=== PATIENT | female | born 1950 | race Caucasian/White ===

== ENCOUNTER 2019-06-09 20:11 | Inpatient (IN) | payer MEDICARE, MEDICAID ==
[2019-06-09] MEDS ORDERED: Sodium Chloride 0.9% 10 ML Syringe FLUSH PRN (20:43)
[2019-06-09] MEDS ORDERED: Sodium Chloride 0.9% 500 ML IV SCH (20:45)
--- NOTE | 2019-06-09 21:12 | EDM.PDOC ---
ED HPI GENERAL MEDICAL PROBLEM - General Chief Complaint: Cardiovascular Problem Stated Complaint: [facility] Time Seen by Provider: 06/09/19 20:19 Source of Information: Reports: Patient, EMS, Detention Records History Limitations: Reports: No Limitations - History of Present Illness INITIAL COMMENTS - FREE TEXT/NARRATIVE: The patient presents by [facility] for low blood pressure. She is a resident of [facility]. She had some diarrhea today. The nurse was doing rounds and her BP was low in the 60s systolic. When EMS did her BP they got in the 120s systolic. The patient has no symptoms. She has no fever, chills, cough, headache, chest pain, shortness of breath, abdominal pain, nausea or vomiting. She has no dysuria. She is not lightheaded. Her orthostatic vitals looked good. She did not get lightheaded when she was transferring from cot to ER bed. Onset: Sudden Duration: Minutes: Improves with: Reports: None Worsens with: Reports: None Associated Symptoms: Reports: No Other Symptoms - Related Data Allergies Allergy/AdvReac Type Severity Reaction Status Date / Time No Known Allergies Allergy Verified 03/22/19 11:15 Home Meds: Home Meds Ascorbic Acid [Vitamin C] 250 mg PO BID 03/22/19 [History] Bisacodyl [Dulcolax] 5 mg PO DAILY PRN 03/22/19 [History] Carvedilol 3.125 mg PO BID 03/22/19 [History] Citalopram Hydrobromide [Celexa] 20 mg PO DAILY 03/22/19 [History] Ferrous Sulfate 325 mg PO BID 03/22/19 [History] Gabapentin [Neurontin] 100 mg PO TID 03/22/19 [History] Insulin Aspart [NovoLOG] 12 units SQ 1217 03/22/19 [History] Insulin Aspart [NovoLOG] 16 units SQ QAM 03/22/19 [History] Insulin Detemir [Levemir] 16 units SQ QPM 03/22/19 [History] Insulin Detemir [Levemir] 22 units SQ QAM 03/22/19 [History] Lisinopril 2.5 mg PO DAILY 03/22/19 [History] Netarsudil Mesylat/Latanoprost [Rocklatan 0.02%-0.005% Eye Drp] 1 drop EYERT BEDTIME 03/22/19 [History] atorvaSTATin [Lipitor] 40 mg PO DAILY 03/22/19 [History] Acetaminophen [Acetaminophen Extra Strength] 1,000 mg PO TID 06/09/19 [History] Aspirin [Halfprin] 81 mg PO DAILY 06/09/19 [History] Bisacodyl [Dulcolax] 10 mg RC DAILY PRN 06/09/19 [History] Brimonidine Tartrate/Timolol [Combigan Eye Drops] 1 drop EYERT BID 06/09/19 [ History] Clopidogrel [Plavix] 75 mg PO DAILY 06/09/19 [History] Famotidine [Pepcid] 40 mg PO DAILY 06/09/19 [History] Insulin Aspart [NovoLOG] 1 - 10 unit SQ TID 06/09/19 [History] Levothyroxine [Synthroid] 100 mcg PO ACBREAKFAST 06/09/19 [History] Ondansetron [Zofran ODT] 4 mg PO TID PRN 06/09/19 [History] Past Medical History HEENT History: Reports: Glaucoma Cardiovascular History: Reports: CAD, Hypertension, MD Respiratory History: Reports: Other (See Below) Other Respiratory History: pulmonary nodule; cance of right lung Gastrointestinal History: Reports: Chronic Constipation Genitourinary History: Reports: Chronic Renal Insuffiency Neurological History: Reports: CVA Other Neuro History: dysphagia Psychiatric History: Reports: Dementia, Depression, Other (See Below) Other Psychiatric History: alcohol induced dementia Endocrine/Metabolic History: Reports: Diabetes, Type II, Hypothyroidism Social & Family History - Tobacco Use Smoking Status *Q: Former Smoker Used Tobacco, but Quit: Yes Month/Year Tobacco Last Used: 5 yr - Caffeine Use Caffeine Use: Reports: None - Recreational Drug Use Recreational Drug Use: No ED ROS GENERAL - Review of Systems Review Of Systems: See Below Constitutional: Reports: No Symptoms HEENT: Reports: No Symptoms Respiratory: Reports: No Symptoms Cardiovascular: Reports: Blood Pressure Problem. Denies: Chest Pain, Lightheadedness Endocrine: Reports: No Symptoms GI/Abdominal: Reports: Diarrhea. Denies: Abdominal Pain, Nausea, Vomiting : Reports: No Symptoms Musculoskeletal: Reports: No Symptoms Skin: Reports: No Symptoms ED EXAM, GENERAL - Physical Exam Exam: See Below Exam Limited By: No Limitations General Appearance: Alert, No Apparent Distress Ears: Normal External Exam Nose: Normal Inspection Head: Atraumatic, Normocephalic Neck: Normal Inspection, Supple, Non-Tender Respiratory/Chest: No Respiratory Distress, Lungs Clear, Normal Breath Sounds Cardiovascular: Regular Rate, Rhythm, No Edema, No Murmur GI/Abdominal: Soft, Non-Tender, No Organomegaly, No Mass Back Exam: Normal Inspection Extremities: Normal Inspection EKG INTERPRETATION EKG Date: 06/09/19 Time: 21:07 Rhythm: NSR Rate (Beats/Min): 66 [place]: LAD-Left [place] Deviation P-Wave: Present QRS: RBBB ST-T: Normal QT: Normal Course - Vital Signs Last Recorded V/S: Last Vital Signs Temp 96.5 F 06/09/19 20:18 Pulse 59 L 06/09/19 20:32 Resp 20 06/09/19 20:18 BP 90/40 L 06/09/19 20:32 Pulse Ox 97 06/09/19 20:18 Orthostatic Blood Pressure [ 121/102 Standing] Orthostatic Blood Pressure [ 112/54 Sitting] Orthostatic Blood Pressure [ 110/51 Supine] - Orders/Labs/Meds Orders: Active Orders 24 hr Category Date Time Status Cardiac Monitoring [RC] . DIRECTED Care 06/09/19 20:43 Active EKG Documentation Completion [RC] STAT Care 06/09/19 20:44 Active Nj Catheter Insertion [Insert Urinary Catheter] [OM. Care 06/09/19 21:30 Ordered PC] Q24H Peripheral IV Care [RC] . DIRECTED Care 06/09/19 20:44 Active RT Aerosol Therapy [RC] ASDIRECTED Care 06/09/19 21:58 Active Urinary Catheter Assessment [RC] ASDIRECTED Care 06/09/19 21:16 Active CULTURE BLOOD [BC] Stat Lab 06/09/19 22:01 Ordered CULTURE BLOOD [BC] Stat Lab 06/09/19 22:01 Ordered CULTURE URINE [RM] Stat Lab 06/09/19 22:01 Ordered LACTIC ACID [CHEM] Stat Lab 06/09/19 22:01 Ordered Sodium Chloride 0.9% [Normal Saline] 500 ml Med 06/09/19 20:45 Active IV .BOLUS Sodium Chloride 0.9% [Normal Saline] 500 ml Med 06/09/19 22:06 Ordered IV .BOLUS Sodium Chloride 0.9% [Saline Flush] Med 06/09/19 20:43 Active 10 ml FLUSH ASDIRECTED PRN cefTRIAXone [Rocephin] 2 gm Med 06/09/19 22:02 Active Sodium Chloride 0.9% [Normal Saline] 100 ml IV ONETIME Blood Culture x2 Reflex Set [OM.PC] Stat Oth 06/09/19 22:01 Ordered Peripheral IV Insertion Adult [OM.PC] Stat Oth 06/09/19 20:43 Ordered Medication Orders Sodium Chloride (Normal Saline) 500 mls @ 1,000 mls/hr IV .BOLUS HOLGER Last Admin: 06/09/19 21:01 Dose: 1,000 mls/hr Ceftriaxone Sodium 2 gm/ (Sodium Chloride) 100 mls @ 200 mls/hr IV ONETIME ONE Stop: 06/09/19 22:31 Sodium Chloride (Saline Flush) 10 ml FLUSH ASDIRECTED PRN PRN Reason: Keep Vein Open Last Admin: 06/09/19 21:01 Dose: 10 ml Labs: Laboratory Tests 06/09/19 06/09/19 06/09/19 Range/Units 21:00 21:00 21:05 WBC 9.13 (3.98-10.04) K/mm3 RBC 3.14 L (3.98-5.22) M/mm3 Hgb 9.2 L (11.2-15.7) gm/dl Hct 29.9 L (34.1-44.9) % MCV 95.2 H (79.4-94.8) fl MCH 29.3 (25.6-32.2) pg MCHC 30.8 L (32.2-35.5) g/dl RDW Std Deviation 46.5 H (36.4-46.3) fL Plt Count 277 (182-369) K/mm3 MPV 10.3 (9.4-12.3) fl Neut % (Auto) 63.3 (34.0-71.1) % Lymph % (Auto) 20.5 (19.3-51.7) % [place] % (Auto) 8.9 (4.7-12.5) % Eos % (Auto) 6.6 H (0.7-5.8) Baso % (Auto) 0.5 (0.1-1.2) % Neut # (Auto) 5.78 (1.56-6.13) K/mm3 Lymph # (Auto) 1.87 (1.18-3.74) K/mm3 Powell # (Auto) 0.81 H (0.24-0.36) K/mm3 Eos # (Auto) 0.60 H (0.04-0.36) K/mm3 Baso # (Auto) 0.05 (0.01-0.08) K/mm3 Sodium 137 (136-145) mEq/L Potassium 6.2 H* (3.5-5.1) mEq/L Chloride 107 (98-107) mEq/L Carbon Dioxide 21 (21-32) mEq/L Anion Gap 15.2 H (5-15) BUN 59 H (7-18) mg/dL Creatinine 2.2 H (0.55-1.02) mg/dL Est Cr Clr Drug Dosing 18.82 mL/min Estimated GFR (MDRD) 22 (>60) mL/min BUN/Creatinine Ratio 26.8 H (14-18) Glucose 83 (80-115) mg/dL Calcium 9.1 (8.5-10.1) mg/dL Magnesium 2.2 (1.8-2.4) mg/dl Total Bilirubin 0.2 (0.2-1.0) mg/dL AST 14 L (15-37) U/L ALT 22 (14-59) U/L Alkaline Phosphatase 97 (46-116) U/L Troponin I < 0.017 (0.00-0.056) ng/mL Total Protein 6.6 (6.4-8.2) g/dl Albumin 2.9 L (3.4-5.0) g/dl Globulin 3.7 gm/dL Albumin/Globulin Ratio 0.8 L (1-2) Urine Color Yellow (Yellow) Urine Appearance Slt cloudy H (Clear) Urine pH 6.0 (5.0-8.0) Ur Specific [place] 1.025 (1.005-1.030) Urine Protein 2+ H (Negative) Urine Glucose (UA) Negative (Negative) Urine Ketones Negative (Negative) Urine Occult Blood Trace-intact H (Negative) Urine Nitrite Negative (Negative) Urine Bilirubin Negative (Negative) Urine Urobilinogen 0.2 (0.2-1.0) Ur Leukocyte Esterase 2+ H (Negative) Urine RBC 0-5 (0-5) /hpf Urine WBC >100 H (0-5) /hpf Urine WBC Clumps Moderate (NOT SEEN) /hpf Ur Epithelial Cells 0-5 (0-5) /hpf Urine Bacteria Many H (FEW) /hpf Urine Mucus Moderate H (FEW) /hpf Meds: Medications Generic Name Dose Route Start Last Admin Trade Name Freq PRN Reason Stop Dose Admin Sodium Chloride 500 mls @ 1,000 mls/hr 06/09/19 20:45 06/09/19 21:01 Normal Saline IV 1,000 mls/hr .BOLUS HOLGER Administration Ceftriaxone Sodium 2 gm/ 100 mls @ 200 mls/hr 06/09/19 22:02 Sodium Chloride IV 06/09/19 22:31 ONETIME ONE Sodium Chloride 10 ml 06/09/19 20:43 06/09/19 21:01 Saline Flush FLUSH 10 ml ASDIRECTED PRN Administration Keep Vein Open Discontinued Medications Generic Name Dose Route Start Last Admin Trade Name Dineshq PRN Reason Stop Dose Admin Albuterol 2.5 mg 06/09/19 21:58 Proventil Neb Soln NEB 06/09/19 21:59 ONETIME ONE Calcium Gluconate 1 gm 06/09/19 21:58 Calcium Gluconate IVPUSH 06/09/19 21:59 ONETIME ONE Dextrose/Water 50 ml 06/09/19 21:59 Dextrose 50% In Water IVPUSH 06/09/19 22:00 ONETIME ONE Insulin Human Regular 10 unit 06/09/19 21:59 Humulin R SUBCUT 06/09/19 22:00 ONETIME ONE Sodium Polystyrene Sulfonate 45 gm 06/09/19 22:00 Kayexalate PO 06/09/19 22:01 NOW ONE - Re-Assessments/Exams Free Text/Narrative Re-Assessment/Exam: 06/09/19 21:18 I ordered an IV NS 500ml bolus, EKG, labs and UA. My nurse noticed some dark stools. I did a rectal exam and she had dark stools but she as guiac negative. I am not sure if she got pepto bismal. 06/09/19 21:50 She is in iron. That can explain the dark stools that are guiac positive. 06/09/19 21:53 Her WBC and platelets look good. Her Hgb is low at 9.2 with lower indices. That must be why she is on the iron. Her K is elevated at 6.2. Her creatinine is elevated at 2.2. Her GFR is 22. 06/09/19 21:54 Her UA shows a UTI. I will do a urine culture and start her on some rocephin. It appears she was just on an antibiotic for a UTI mid May. I will give her some calcium gluconate, insulin and sugar, albuterol, hydration and kaexylate to help bring her potassium down. I feel she needs to be admitted. I called Dr Phan and he agreed to the admission. 06/09/19 21:57 There is no changes on her EKG. Departure - Departure Time of Disposition: 22:10 Disposition: Admitted As Inpatient 65 Condition: Poor Clinical Impression: Hyperkalemia, Renal insufficiency UTI (urinary tract infection) Qualifiers: Urinary tract infection type: site unspecified Hematuria presence: without hematuria Qualified Code(s): N39.0 - Urinary tract infection, site not specified Anemia Qualifiers: Anemia type: unspecified type Qualified Code(s): D64.9 - Anemia, unspecified Referrals: Joel Lieberman MD [Primary Care Provider] - Forms: ED Department Discharge - My Orders Last 24 Hours: My Active Orders 06/09/19 20:43 Cardiac Monitoring [RC] . DIRECTED Sodium Chloride 0.9% [Saline Flush] 10 ml FLUSH ASDIRECTED PRN Peripheral IV Insertion Adult [OM.PC] Stat 06/09/19 20:44 EKG Documentation Completion [RC] STAT Peripheral IV Care [RC] . DIRECTED 06/09/19 20:45 Sodium Chloride 0.9% [Normal Saline] 500 ml IV .BOLUS 06/09/19 21:16 Urinary Catheter Assessment [RC] ASDIRECTED 06/09/19 21:30 Nj Catheter Insertion [Insert Urinary Catheter] [OM.PC] Q24H 06/09/19 21:58 RT Aerosol Therapy [RC] ASDIRECTED 06/09/19 22:01 CULTURE BLOOD [BC] Stat CULTURE BLOOD [BC] Stat CULTURE URINE [RM] Stat LACTIC ACID [CHEM] Stat Blood Culture x2 Reflex Set [OM.PC] Stat 06/09/19 22:02 cefTRIAXone [Rocephin] 2 gm Sodium Chloride 0.9% [Normal Saline] 100 ml IV ONETIME 06/09/19 22:06 Sodium Chloride 0.9% [Normal Saline] 500 ml IV .BOLUS - Assessment/Plan Last 24 Hours: My Active Orders 06/09/19 20:43 Cardiac Monitoring [RC] . DIRECTED Sodium Chloride 0.9% [Saline Flush] 10 ml FLUSH ASDIRECTED PRN Peripheral IV Insertion Adult [OM.PC] Stat 06/09/19 20:44 EKG Documentation Completion [RC] STAT Peripheral IV Care [RC] . DIRECTED 06/09/19 20:45 Sodium Chloride 0.9% [Normal Saline] 500 ml IV .BOLUS 06/09/19 21:16 Urinary Catheter Assessment [RC] ASDIRECTED 06/09/19 21:30 Nj Catheter Insertion [Insert Urinary Catheter] [OM.PC] Q24H 06/09/19 21:58 RT Aerosol Therapy [RC] ASDIRECTED 06/09/19 22:01 CULTURE BLOOD [BC] Stat CULTURE BLOOD [BC] Stat CULTURE URINE [RM] Stat LACTIC ACID [CHEM] Stat Blood Culture x2 Reflex Set [OM.PC] Stat 06/09/19 22:02 cefTRIAXone [Rocephin] 2 gm Sodium Chloride 0.9% [Normal Saline] 100 ml IV ONETIME 06/09/19 22:06 Sodium Chloride 0.9% [Normal Saline] 500 ml IV .BOLUS
[2019-06-09] MEDS ORDERED: Calcium Gluconate 10% 1 GM/10 ML SDV IVPUSH ONE (21:58)
[2019-06-09] MEDS ORDERED: Albuterol 0.083% 2.5 MG/3 ML Neb Soln NEB ONE (21:58)
[2019-06-09] MEDS ORDERED: 50% Dextrose in Water 50 ML Syringe IVPUSH ONE (21:59)
[2019-06-09] MEDS ORDERED: Insulin Regular, Human 100 Units/ML 3 ML Vial SUBCUT ONE (21:59)
[2019-06-09] MEDS ORDERED: Sodium Polystyrene Sulfonate 15 GM/60 ML Susp 60 ML Bot PO ONE (22:00)
[2019-06-09] MEDS ORDERED: cefTRIAXone 2 GM in Sodium Chloride 0.9% 100 ML IV ONE (22:02)
[2019-06-09] MEDS ORDERED: Sodium Chloride 0.9% 500 ML IV ONE (22:06)
[2019-06-10] MEDS ORDERED: Sodium Chloride 0.9% 1,000 ML IV SCH ×2 (00:15→08:15)
--- NOTE | 2019-06-10 07:07 | PCM.HP.2 ---
H&P History of Present Illness - General Date of Service: 06/10/19 Admit Problem/Dx: Admission Diagnosis/Problem Admission Diagnosis/Problem Hypokalemia Source of Information: Patient, Provider, RN, RN Notes Reviewed History Limitations: Reports: No Limitations - History of Present Illness Initial Comments - Free Text/Narative: Miracle Burgess is a 69 yo female who presented to our ED on 06/09/19 via [facility] with hypotension. Nursing reported her blood pressure at [facility] was in the 60s systolic. EMS was summoned and on their arrival blood pressure was noted to be in the 120 systolic. In the ED patient has no symptoms. She denies fever, chills, cough, headache, chest pain, short of breath, abdominal pain, nausea, vomiting. She denies dysuria or light headedness. Orthostatic vital signs were obtained and looked good. long-term staff reports patient did have some diarrhea earlier in the day but it had apparently resolved prior to arrival in the ED. In the ED twelve-lead EKG is obtained showing sinus rhythm at 66 bpm with left axis deviation. There is also right bundle branch block noted. It was 96.5 Fahrenheit. Pulse 59. Respirations 20. Blood pressure 90/40. Pulse ox 97%. Labs are obtained: WBC is 9.13. Hemoglobin 9.2. Hematocrit 29.9. She is macrocytic. Pulse are 277,000. Neutrophils are normal at 63.3%. Sodium is 137. Potassium is high at 6.2. Chloride is 107. Carbon dioxide 21. Anion gap is slightly high at 15.2. BUN is high at 59. Creatinine is 2.2. EGFR is 22. Glucose is 83. Calcium 9.1. Magnesium 2.2. Bilirubin 0.2. AST is 14, ALT 22, alkaline phosphatase 97. Troponin is negative at less than 0.017. Protein is 6.6. Albumin is quite low at 2.9. UA is obtained and is noted to be slightly cloudy with 2+ protein, trace occult blood, 2+ leukocyte esterase, greater than 100 WBCs. Moderate WBC clumps, many bacteria, and moderate uterus. She is given normal saline and started on Rocephin antibiotic. She is also given Kayexalate and 10 units of insulin. 500 mL saline bolus is administered. Guaiac is obtained and is positive however it is noted that the patient is on iron supplement. She is reportedly recently treated for UTI this past May. She carries a history of glaucoma, CAD, hypertension, [place], pulmonary nodule and cancer of the right lung, chronic constipation, chronic renal insufficiency, CVA , dementia, depression, type 2 diabetes, hypothyroidism. She is a former smoker. She says really admitted to the medical floor with telemetry. She is a DNR/ DNI. PCP is Dr. Lieberman - Related Data Allergies/Adverse Reactions: Allergies Allergy/AdvReac Type Severity Reaction Status Date / Time No Known Allergies Allergy Verified 03/22/19 11:15 Home Medications: Home Meds Ascorbic Acid [Vitamin C] 250 mg PO BID 03/22/19 [History] Bisacodyl [Dulcolax] 5 mg PO DAILY PRN 03/22/19 [History] Carvedilol 3.125 mg PO BID 03/22/19 [History] Citalopram Hydrobromide [Celexa] 20 mg PO DAILY 03/22/19 [History] Ferrous Sulfate 325 mg PO BID 03/22/19 [History] Gabapentin [Neurontin] 100 mg PO TID 03/22/19 [History] Insulin Aspart [NovoLOG] 12 units SQ 03/22/19 [History] Insulin Aspart [NovoLOG] 16 units SQ QAM 03/22/19 [History] Insulin Detemir [Levemir] 16 units SQ QPM 03/22/19 [History] Insulin Detemir [Levemir] 22 units SQ QAM 03/22/19 [History] Lisinopril 2.5 mg PO DAILY 03/22/19 [History] Netarsudil Mesylat/Latanoprost [Rocklatan 0.02%-0.005% Eye Drp] 1 drop EYERT BEDTIME 03/22/19 [History] atorvaSTATin [Lipitor] 40 mg PO BEDTIME 03/22/19 [History] Acetaminophen [Acetaminophen Extra Strength] 1,000 mg PO TID 06/09/19 [History] Aspirin [Halfprin] 81 mg PO DAILY 06/09/19 [History] Bisacodyl [Dulcolax] 10 mg RC DAILY PRN 06/09/19 [History] Brimonidine Tartrate/Timolol [Combigan Eye Drops] 1 drop EYERT BID 06/09/19 [ History] Clopidogrel [Plavix] 75 mg PO DAILY 06/09/19 [History] Famotidine [Pepcid] 40 mg PO ACBREAKFAST 06/09/19 [History] Insulin Aspart [NovoLOG] 1 - 10 unit SQ TID 06/09/19 [History] Levothyroxine [Synthroid] 100 mcg PO ACBREAKFAST 06/09/19 [History] Ondansetron [Zofran ODT] 4 mg PO TID PRN 06/09/19 [History] Past Medical History HEENT History: Reports: Glaucoma Cardiovascular History: Reports: CAD, Hypertension, [place] Respiratory History: Reports: Other (See Below) Other Respiratory History: pulmonary nodule; cancer of right lung Gastrointestinal History: Reports: Chronic Constipation Genitourinary History: Reports: Chronic Renal Insuffiency Neurological History: Reports: CVA Other Neuro History: dysphagia oropharyngeal phase Psychiatric History: Reports: Dementia, Depression, Other (See Below) Other Psychiatric History: alcohol induced dementia Endocrine/Metabolic History: Reports: Diabetes, Type II, Hypothyroidism Social & Family History - Family History Family Medical History: Noncontributory - Tobacco Use Smoking Status *Q: Unknown Ever Smoked Used Tobacco, but Quit: Yes Month/Year Tobacco Last Used: 5 yr Second Hand Smoke Exposure: No - Caffeine Use Caffeine Use: Reports: None - Recreational Drug Use Recreational Drug Use: No H&P Review of Systems - Review of Systems: Review Of Systems: See Below General: Reports: No Symptoms. Denies: Fever, Chills, Malaise, Weakness, Fatigue HEENT: Reports: No Symptoms Pulmonary: Reports: No Symptoms. Denies: Shortness of Breath, Wheezing, Cough, Sputum Cardiovascular: Reports: No Symptoms. Denies: Chest Pain, Palpitations, Edema Gastrointestinal: Reports: No Symptoms. Denies: Abdominal Pain, Constipation, Diarrhea (resolved), Nausea, Vomiting Genitourinary: Reports: No Symptoms. Denies: Pain Musculoskeletal: Reports: No Symptoms Skin: Reports: No Symptoms Psychiatric: Reports: No Symptoms. Denies: Confusion Neurological: Reports: No Symptoms. Denies: Confusion Hematologic/Lymphatic: Reports: No Symptoms Immunologic: Reports: No Symptoms Exam - Exam Exam: See Below - Vital Signs Vital Signs: Last Vital Signs Temp 98.2 F 06/10/19 03:53 Pulse 64 06/10/19 03:53 Resp 18 06/10/19 03:53 BP 110/60 06/10/19 03:53 Pulse Ox 97 06/10/19 03:53 Orthostatic Blood Pressure [ 121/102 Standing] Orthostatic Blood Pressure [ 112/54 Sitting] Orthostatic Blood Pressure [ 110/51 Supine] Weight: 169 lb 1.6 oz - Exam Quality Assessment: DVT Prophylaxis General: Alert, Oriented, Cooperative. No: Mild Distress HEENT: Conjunctiva Clear, EACs Clear, Hearing Intact, Mucosa Moist & Cricket, Nares Patent, Posterior Pharynx Clear, TMs Clear, PERRLA Neck: Supple, Trachea Midline Lungs: Clear to Auscultation, Normal Respiratory Effort Cardiovascular: Regular Rate, Regular Rhythm GI/Abdominal Exam: Normal Bowel Sounds, Soft, Non-Tender, No Distention, No Abnormal Bruit (Female) Exam: Deferred Rectal (Female) Exam: Deferred Back Exam: Normal Inspection, Full Range of Motion Extremities: Normal Inspection, Normal Range of Motion, Non-Tender, No Pedal Edema, Normal Capillary Refill Peripheral Pulses: 1+: Dorsalis Pedis (L), Dorsalis Pedis (R), 2+: Radial (L), Radial (R) Skin: Warm, Dry, Intact - Patient Data Lab Results Last 24 hrs: Laboratory Results - last 24 hr 06/09/19 06/09/19 06/09/19 Range/Units 21:00 21:00 21:05 WBC 9.13 (3.98-10.04) K/mm3 RBC 3.14 L (3.98-5.22) M/mm3 Hgb 9.2 L (11.2-15.7) gm/dl Hct 29.9 L (34.1-44.9) % MCV 95.2 H (79.4-94.8) fl MCH 29.3 (25.6-32.2) pg MCHC 30.8 L (32.2-35.5) g/dl RDW Std Deviation 46.5 H (36.4-46.3) fL Plt Count 277 (182-369) K/mm3 MPV 10.3 (9.4-12.3) fl Neut % (Auto) 63.3 (34.0-71.1) % Lymph % (Auto) 20.5 (19.3-51.7) % [place] % (Auto) 8.9 (4.7-12.5) % Eos % (Auto) 6.6 H (0.7-5.8) Baso % (Auto) 0.5 (0.1-1.2) % Neut # (Auto) 5.78 (1.56-6.13) K/mm3 Lymph # (Auto) 1.87 (1.18-3.74) K/mm3 [place] # (Auto) 0.81 H (0.24-0.36) K/mm3 Eos # (Auto) 0.60 H (0.04-0.36) K/mm3 Baso # (Auto) 0.05 (0.01-0.08) K/mm3 Sodium 137 (136-145) mEq/L Potassium 6.2 H* (3.5-5.1) mEq/L Chloride 107 (98-107) mEq/L Carbon Dioxide 21 (21-32) mEq/L Anion Gap 15.2 H (5-15) BUN 59 H (7-18) mg/dL Creatinine 2.2 H (0.55-1.02) mg/dL Est Cr Clr Drug Dosing 18.82 mL/min Estimated GFR (MDRD) 22 (>60) mL/min BUN/Creatinine Ratio 26.8 H (14-18) Glucose 83 (80-115) mg/dL POC Glucose (80-115) mg/dL Lactic Acid (0.4-2.0) mmol/L Calcium 9.1 (8.5-10.1) mg/dL Magnesium 2.2 (1.8-2.4) mg/dl Total Bilirubin 0.2 (0.2-1.0) mg/dL AST 14 L (15-37) U/L ALT 22 (14-59) U/L Alkaline Phosphatase 97 (46-116) U/L Troponin I < 0.017 (0.00-0.056) ng/mL Total Protein 6.6 (6.4-8.2) g/dl Albumin 2.9 L (3.4-5.0) g/dl Globulin 3.7 gm/dL Albumin/Globulin Ratio 0.8 L (1-2) Urine Color Yellow (Yellow) Urine Appearance Slt cloudy H (Clear) Urine pH 6.0 (5.0-8.0) Ur Specific [place] 1.025 (1.005-1.030) Urine Protein 2+ H (Negative) Urine Glucose (UA) Negative (Negative) Urine Ketones Negative (Negative) Urine Occult Blood Trace-intact H (Negative) Urine Nitrite Negative (Negative) Urine Bilirubin Negative (Negative) Urine Urobilinogen 0.2 (0.2-1.0) Ur Leukocyte Esterase 2+ H (Negative) Urine RBC 0-5 (0-5) /hpf Urine WBC >100 H (0-5) /hpf Urine WBC Clumps Moderate (NOT SEEN) /hpf Ur Epithelial Cells 0-5 (0-5) /hpf Urine Bacteria Many H (FEW) /hpf Urine Mucus Moderate H (FEW) /hpf MRSA (PCR) 06/09/19 06/09/19 06/10/19 Range/Units 22:15 23:51 00:39 WBC (3.98-10.04) K/mm3 RBC (3.98-5.22) M/mm3 Hgb (11.2-15.7) gm/dl Hct (34.1-44.9) % MCV (79.4-94.8) fl MCH (25.6-32.2) pg MCHC (32.2-35.5) g/dl RDW Std Deviation (36.4-46.3) fL Plt Count (182-369) K/mm3 MPV (9.4-12.3) fl Neut % (Auto) (34.0-71.1) % Lymph % (Auto) (19.3-51.7) % [place] % (Auto) (4.7-12.5) % Eos % (Auto) (0.7-5.8) Baso % (Auto) (0.1-1.2) % Neut # (Auto) (1.56-6.13) K/mm3 Lymph # (Auto) (1.18-3.74) K/mm3 [place] # (Auto) (0.24-0.36) K/mm3 Eos # (Auto) (0.04-0.36) K/mm3 Baso # (Auto) (0.01-0.08) K/mm3 Sodium 139 (136-145) mEq/L Potassium 5.6 H (3.5-5.1) mEq/L Chloride 109 H (98-107) mEq/L Carbon Dioxide 20 L (21-32) mEq/L Anion Gap 15.6 H (5-15) BUN 56 H (7-18) mg/dL Creatinine 2.0 H (0.55-1.02) mg/dL Est Cr Clr Drug Dosing 20.70 mL/min Estimated GFR (MDRD) 25 (>60) mL/min BUN/Creatinine Ratio 28.0 H (14-18) Glucose 107 (80-115) mg/dL POC Glucose (80-115) mg/dL Lactic Acid 1.1 (0.4-2.0) mmol/L Calcium 9.6 (8.5-10.1) mg/dL Magnesium (1.8-2.4) mg/dl Total Bilirubin (0.2-1.0) mg/dL AST (15-37) U/L ALT (14-59) U/L Alkaline Phosphatase (46-116) U/L Troponin I (0.00-0.056) ng/mL Total Protein (6.4-8.2) g/dl Albumin (3.4-5.0) g/dl Globulin gm/dL Albumin/Globulin Ratio (1-2) Urine Color (Yellow) Urine Appearance (Clear) Urine pH (5.0-8.0) Ur Specific [place] (1.005-1.030) Urine Protein (Negative) Urine Glucose (UA) (Negative) Urine Ketones (Negative) Urine Occult Blood (Negative) Urine Nitrite (Negative) Urine Bilirubin (Negative) Urine Urobilinogen (0.2-1.0) Ur Leukocyte Esterase (Negative) Urine RBC (0-5) /hpf Urine WBC (0-5) /hpf Urine WBC Clumps (NOT SEEN) /hpf Ur Epithelial Cells (0-5) /hpf Urine Bacteria (FEW) /hpf Urine Mucus (FEW) /hpf MRSA (PCR) Negative 06/10/19 06/10/19 Range/Units 05:05 06:46 WBC (3.98-10.04) K/mm3 RBC (3.98-5.22) M/mm3 Hgb (11.2-15.7) gm/dl Hct (34.1-44.9) % MCV (79.4-94.8) fl MCH (25.6-32.2) pg MCHC (32.2-35.5) g/dl RDW Std Deviation (36.4-46.3) fL Plt Count (182-369) K/mm3 MPV (9.4-12.3) fl Neut % (Auto) (34.0-71.1) % Lymph % (Auto) (19.3-51.7) % [place] % (Auto) (4.7-12.5) % Eos % (Auto) (0.7-5.8) Baso % (Auto) (0.1-1.2) % Neut # (Auto) (1.56-6.13) K/mm3 Lymph # (Auto) (1.18-3.74) K/mm3 [place] # (Auto) (0.24-0.36) K/mm3 Eos # (Auto) (0.04-0.36) K/mm3 Baso # (Auto) (0.01-0.08) K/mm3 Sodium 142 (136-145) mEq/L Potassium 5.0 (3.5-5.1) mEq/L Chloride 111 H (98-107) mEq/L Carbon Dioxide 21 (21-32) mEq/L Anion Gap 15.0 (5-15) BUN 50 H (7-18) mg/dL Creatinine 1.9 H (0.55-1.02) mg/dL Est Cr Clr Drug Dosing 19.79 mL/min Estimated GFR (MDRD) 26 (>60) mL/min BUN/Creatinine Ratio 26.3 H (14-18) Glucose 47 L (80-115) mg/dL POC Glucose 109 (80-115) mg/dL Lactic Acid (0.4-2.0) mmol/L Calcium 9.2 (8.5-10.1) mg/dL Magnesium (1.8-2.4) mg/dl Total Bilirubin (0.2-1.0) mg/dL AST (15-37) U/L ALT (14-59) U/L Alkaline Phosphatase (46-116) U/L Troponin I (0.00-0.056) ng/mL Total Protein (6.4-8.2) g/dl Albumin (3.4-5.0) g/dl Globulin gm/dL Albumin/Globulin Ratio (1-2) Urine Color (Yellow) Urine Appearance (Clear) Urine pH (5.0-8.0) Ur Specific [place] (1.005-1.030) Urine Protein (Negative) Urine Glucose (UA) (Negative) Urine Ketones (Negative) Urine Occult Blood (Negative) Urine Nitrite (Negative) Urine Bilirubin (Negative) Urine Urobilinogen (0.2-1.0) Ur Leukocyte Esterase (Negative) Urine RBC (0-5) /hpf Urine WBC (0-5) /hpf Urine WBC Clumps (NOT SEEN) /hpf Ur Epithelial Cells (0-5) /hpf Urine Bacteria (FEW) /hpf Urine Mucus (FEW) /hpf MRSA (PCR) Result Diagrams: 06/09/19 21:00 06/10/19 05:05 - Problem List (1) Anemia SNOMED Code(s): 587721762 ICD Code: D64.9 - ANEMIA, UNSPECIFIED Status: Chronic Priority: Medium Current Visit: No Qualifiers: Anemia type: unspecified type Qualified Code(s): D64.9 - Anemia, unspecified (2) Hyperkalemia SNOMED Code(s): 35870592 ICD Code: E87.5 - HYPERKALEMIA Status: Acute Priority: High Current Visit: Yes (3) Renal insufficiency SNOMED Code(s): 655295491, 553289486 ICD Code: N28.9 - DISORDER OF KIDNEY AND URETER, UNSPECIFIED Status: Acute Priority: High Current Visit: Yes (4) UTI (urinary tract infection) SNOMED Code(s): 67418401 ICD Code: N39.0 - URINARY TRACT INFECTION, SITE NOT SPECIFIED Status: Acute Priority: High Current Visit: Yes Qualifiers: Urinary tract infection type: site unspecified Hematuria presence: without hematuria Qualified Code(s): N39.0 - Urinary tract infection, site not specified (5) Type II diabetes mellitus SNOMED Code(s): 94968829 ICD Code: E11.9 - TYPE 2 DIABETES MELLITUS WITHOUT COMPLICATIONS Status: Chronic Priority: Medium Current Visit: Yes Qualifiers: Diabetes mellitus buttermaker helper insulin use: with buttermaker helper use Diabetes mellitus complication status: with other specified complication Qualified Code (s): E11.69 - Type 2 diabetes mellitus with other specified complication; Z79.4 - MCC (current) use of insulin (6) Dementia SNOMED Code(s): 79500874 ICD Code: F03.90 - UNSPECIFIED DEMENTIA WITHOUT BEHAVIORAL DISTURBANCE Status: Chronic Priority: Medium Current Visit: No Qualifiers: Dementia type: associated with alcoholism Dementia behavioral disturbance: without behavioral disturbance Qualified Code(s): F10.27 - Alcohol dependence with alcohol-induced persisting dementia (7) Hypothyroidism SNOMED Code(s): 08081234 ICD Code: E03.9 - HYPOTHYROIDISM, UNSPECIFIED Status: Chronic Priority: Low Current Visit: No Qualifiers: Hypothyroidism type: unspecified Qualified Code(s): E03.9 - Hypothyroidism , unspecified Problem List Initiated/Reviewed/Updated: Yes Orders Last 24hrs: Active Orders 24 hr Category Date Time Status Patient Status [ADT] Routine ADT 06/09/19 22:46 Active Accu Check [Blood Glucose Check, Bedside] [RC] Care 06/10/19 07:02 Active QIDACANDBED Bedrest Bathroom Privileges [RC] BID Care 06/10/19 00:04 Active Cardiac Monitoring [RC] . DIRECTED Care 06/09/19 20:43 Active [place] Catheter Insertion [Insert Urinary Catheter] [OM. Care 06/09/19 21:30 Ordered PC] Q24H RT Aerosol Therapy [RC] ASDIRECTED Care 06/09/19 21:58 Active Thickened Liquids [DIET] Diet 06/10/19 Breakfast Active CULTURE BLOOD [BC] Stat Lab 06/09/19 22:01 Ordered CULTURE BLOOD [BC] Stat Lab 06/09/19 22:30 Received CULTURE URINE [RM] Stat Lab 06/09/19 21:05 Received Sodium Chloride 0.9% [Normal Saline] 1,000 ml Med 06/10/19 00:15 Active IV ASDIRECTED Sodium Chloride 0.9% [Saline Flush] Med 06/09/19 20:43 Active 10 ml FLUSH ASDIRECTED PRN cefTRIAXone [Rocephin] 1 gm Med 06/10/19 22:00 Active Sodium Chloride 0.9% [Normal Saline] 100 ml IV Q24H Blood Culture x2 Reflex Set [OM.PC] Stat Oth 06/09/19 22:01 Ordered Peripheral IV Insertion Adult [OM.PC] Stat Oth 06/09/19 20:43 Ordered Code Status [Resuscitation Status] Routine Resus Stat 06/10/19 00:04 Ordered Medication Orders Ceftriaxone Sodium 1 gm/ (Sodium Chloride) 100 mls @ 200 mls/hr IV Q24H HOLGER Sodium Chloride (Normal Saline) 1,000 mls @ 150 mls/hr IV ASDIRECTED HOLGER Last Admin: 06/10/19 01:07 Dose: 150 mls/hr Sodium Chloride (Saline Flush) 10 ml FLUSH ASDIRECTED PRN PRN Reason: Keep Vein Open Last Admin: 06/09/19 21:01 Dose: 10 ml Assessment/Plan Comment:: I/P: UTI -Reportedly hypotensive at SNF, denies urinary symptoms -UA in ED positive -Rocephin 2gm started in ED - Continue at 1gm -Reportedly treated for UTI in May per ED note - no history here; obtain old records -IV fluids as ordered -Urine culture pending -Blood cultures pending Hyperkalemia, resolved -Potassium 6.2 in ED -->5.6-->5.0 -Given Kayexalate in ED Renal injury, improving -Acute on chronic -Unsure of baseline but per SNF notes patient has history of CKD -BUN 59-->56-->50 -Creatinine 2.2-->2.0-->1.9 -GFR 22-->25-->26 -IV fluids as ordered -Obtain old records to determine baseline Anemia -Hgb 9.2 -Positive occult stool but on home iron supplementation -Iron panel pending -B 12 pending -Folate pending -Continue home iron supplementation Chronic: glaucoma CAD hypertension Hx/o [place] pulmonary nodule and cancer of the right lung chronic constipation chronic renal insufficiency CVA dementia depression type 2 diabetes hypothyroidism Plan: Baseline NDD2 diet with nectar thick liquids Admit to medical floor Routine AM labs Other orders as indicated above PT/OT Spiritual care consult DVT prophylaxis: Code status: DNR/DNI; PCP: Dr. Lieberman - Mortality Measure Prognosis:: Good
[2019-06-10] MEDS ORDERED: Bisacodyl 5 MG Tab PO PRN (08:02)
[2019-06-10] MEDS ORDERED: Bisacodyl 10 MG Supp RECTAL PRN (08:02)
[2019-06-10] MEDS ORDERED: Ondansetron 4 MG Tab.DIS PO PRN (08:02)
[2019-06-10] MEDS: Ferrous Sulfate 324 MG Tab.EC PO SCH ×2 (09:09→20:46)
[2019-06-10] MEDS: Carvedilol 3.125 MG Tab PO SCH ×2 (09:09→20:44)
[2019-06-10] MEDS: Aspirin 81 MG Tab.EC PO SCH (09:09)
[2019-06-10] MEDS: Ascorbic Acid 500 MG Tab PO SCH ×2 (09:10→20:47)
[2019-06-10] MEDS: Clopidogrel 75 MG Tab PO SCH (09:10)
[2019-06-10] MEDS: Gabapentin 100 MG Cap PO SCH ×3 (09:10→20:46)
[2019-06-10] MEDS: Citalopram 20 MG Tab PO SCH (09:10)
[2019-06-10] MEDS: Timolol Maleate 0.5% Ophth Soln 5 ML Bottle EYEBOTH SCH ×2 (09:13→20:49)
[2019-06-10] MEDS: Brimonidine 0.2% Ophth Soln 15 ML Bottle EYERT SCH ×2 (09:15→20:48)
[2019-06-10 09:16] LABS: HEMOGLOBIN A1C 6.3 % (4.50-6.20)
[2019-06-10] MEDS: Insulin Lispro 100 Units/ML 3 ML Vial SUBCUT SCH ×3 (12:31→21:41)
[2019-06-10] MEDS ORDERED: Insulin Glarg,Human.Rec.Analog 100 UNIT/ML ML SUBCUT SCH (18:00)
[2019-06-10] MEDS ORDERED: Rosuvastatin 10 MG Tab PO SCH (21:00)
[2019-06-10] MEDS ORDERED: NETARSUDIL MESYLAT EYERT SCH (21:00)
[2019-06-10] MEDS ORDERED: LATANOPROST EYERT SCH (21:00)
[2019-06-10] MEDS ORDERED: cefTRIAXone 1 GM in Sodium Chloride 0.9% 100 ML IV SCH (22:00)
[2019-06-11] MEDS ORDERED: Levothyroxine 100 MCG Tab PO SCH (06:00)
[2019-06-11] MEDS ORDERED: Famotidine 20 MG Tab PO SCH (06:00)
[2019-06-11] MEDS: Insulin Lispro 100 Units/ML 3 ML Vial SUBCUT SCH ×2 (06:35→11:40)
[2019-06-11] MEDS ORDERED: Magnesium Sulfate/Water 2 GM in Premix Bag 1 BAG IV ONE (07:13)
[2019-06-11] MEDS ORDERED: Sodium Polystyrene Sulfonate 15 GM/60 ML Susp 60 ML Bot PO ONE (08:00)
[2019-06-11] MEDS ORDERED: Insulin Glarg,Human.Rec.Analog 100 UNIT/ML ML SUBCUT SCH (08:00)
[2019-06-11] MEDS: Ferrous Sulfate 324 MG Tab.EC PO SCH (08:47)
[2019-06-11] MEDS: Aspirin 81 MG Tab.EC PO SCH (08:47)
[2019-06-11] MEDS: Clopidogrel 75 MG Tab PO SCH (08:47)
[2019-06-11] MEDS: Carvedilol 3.125 MG Tab PO SCH (08:47)
[2019-06-11] MEDS: Gabapentin 100 MG Cap PO SCH (08:47)
[2019-06-11] MEDS: Citalopram 20 MG Tab PO SCH (08:48)
[2019-06-11] MEDS: Ascorbic Acid 500 MG Tab PO SCH (08:48)
[2019-06-11] MEDS ORDERED: Magnesium Oxide 400 MG Tab PO ONE (09:00)
[2019-06-11] MEDS: Brimonidine 0.2% Ophth Soln 15 ML Bottle EYERT SCH (09:02)
[2019-06-11] MEDS: Timolol Maleate 0.5% Ophth Soln 5 ML Bottle EYEBOTH SCH (09:04)
--- NOTE | 2019-06-11 11:24 | PCM.DCSUM1 ---
Discharge Summary - Hospital Course HPI Initial Comments: Miracle Burgess is a 69 yo female who presented to our ED on 06/09/19 via [facility] with hypotension. Nursing reported her blood pressure at [facility] was in the 60s systolic. EMS was summoned and on their arrival blood pressure was noted to be in the 120 systolic. In the ED patient has no symptoms. She denies fever, chills, cough, headache, chest pain, short of breath, abdominal pain, nausea, vomiting. She denies dysuria or light headedness. Orthostatic vital signs were obtained and looked good. senior care staff reports patient did have some diarrhea earlier in the day but it had apparently resolved prior to arrival in the ED. In the ED twelve-lead EKG is obtained showing sinus rhythm at 66 bpm with left axis deviation. There is also right bundle branch block noted. It was 96.5 Fahrenheit. Pulse 59. Respirations 20. Blood pressure 90/40. Pulse ox 97%. Labs are obtained: WBC is 9.13. Hemoglobin 9.2. Hematocrit 29.9. She is macrocytic. Pulse are 277,000. Neutrophils are normal at 63.3%. Sodium is 137. Potassium is high at 6.2. Chloride is 107. Carbon dioxide 21. Anion gap is slightly high at 15.2. BUN is high at 59. Creatinine is 2.2. EGFR is 22. Glucose is 83. Calcium 9.1. Magnesium 2.2. Bilirubin 0.2. AST is 14, ALT 22, alkaline phosphatase 97. Troponin is negative at less than 0.017. Protein is 6.6. Albumin is quite low at 2.9. UA is obtained and is noted to be slightly cloudy with 2+ protein, trace occult blood, 2+ leukocyte esterase, greater than 100 WBCs. Moderate WBC clumps, many bacteria, and moderate uterus. She is given normal saline and started on Rocephin antibiotic. She is also given Kayexalate and 10 units of insulin. 500 mL saline bolus is administered. Guaiac is obtained and is positive however it is noted that the patient is on iron supplement. She is reportedly recently treated for UTI this past May. She carries a history of glaucoma, CAD, hypertension, MT, pulmonary nodule and cancer of the right lung, chronic constipation, chronic renal insufficiency, CVA , dementia, depression, type 2 diabetes, hypothyroidism. She is a former smoker. She says really admitted to the medical floor with telemetry. She is a DNR/ DNI. PCP is Dr. Lieberman Diagnosis: Stroke: No - Discharge Data Discharge Date: 06/11/19 (Admit date: 06/09/19) Discharge Disposition: DC/Tfer to SNF 03 Condition: Good - Referral to Home Health Primary Care Physician: Joel Lieberman MD - Discharge Diagnosis/Problem(s) (1) Anemia SNOMED Code(s): 132430244 ICD Code: D64.9 - ANEMIA, UNSPECIFIED Status: Chronic Priority: Medium Current Visit: No Qualifiers: Anemia type: unspecified type Qualified Code(s): D64.9 - Anemia, unspecified (2) Hyperkalemia SNOMED Code(s): 44111020 ICD Code: E87.5 - HYPERKALEMIA Status: Acute Priority: High Current Visit: Yes (3) Renal insufficiency SNOMED Code(s): 862325506, 504199017 ICD Code: N28.9 - DISORDER OF KIDNEY AND URETER, UNSPECIFIED Status: Acute Priority: High Current Visit: Yes (4) UTI (urinary tract infection) SNOMED Code(s): 42945637 ICD Code: N39.0 - URINARY TRACT INFECTION, SITE NOT SPECIFIED Status: Acute Priority: High Current Visit: Yes Qualifiers: Urinary tract infection type: site unspecified Hematuria presence: without hematuria Qualified Code(s): N39.0 - Urinary tract infection, site not specified (5) Type II diabetes mellitus SNOMED Code(s): 45330142 ICD Code: E11.9 - TYPE 2 DIABETES MELLITUS WITHOUT COMPLICATIONS Status: Chronic Priority: Medium Current Visit: Yes Qualifiers: Diabetes mellitus nursing home insulin use: with nursing home use Diabetes mellitus complication status: with other specified complication Qualified Code (s): E11.69 - Type 2 diabetes mellitus with other specified complication; Z79.4 - shelter (current) use of insulin (6) Dementia SNOMED Code(s): 87052029 ICD Code: F03.90 - UNSPECIFIED DEMENTIA WITHOUT BEHAVIORAL DISTURBANCE Status: Chronic Priority: Medium Current Visit: No Qualifiers: Dementia type: associated with alcoholism Dementia behavioral disturbance: without behavioral disturbance Qualified Code(s): F10.27 - Alcohol dependence with alcohol-induced persisting dementia (7) Hypothyroidism SNOMED Code(s): 05149751 ICD Code: E03.9 - HYPOTHYROIDISM, UNSPECIFIED Status: Chronic Priority: Low Current Visit: No Qualifiers: Hypothyroidism type: unspecified Qualified Code(s): E03.9 - Hypothyroidism , unspecified (8) Hypomagnesemia SNOMED Code(s): 774975080 ICD Code: E83.42 - HYPOMAGNESEMIA Status: Acute Current Visit: Yes - Patient Summary/Data Consults: Consultations 06/10/19 08:07 Consult to Case Management/Street Photographer [CONS] Routine Consult to Spiritual Care [CONS] Routine OT Evaluation and Treatment [CONS] Routine PT Evaluation and Treatment [CONS] Routine Labs Pending at D/C: None Recommended Follow-up Testing/Procedures: Follow-up with PCP within 5-7 days of discharge. CBC, BMP, and magnesium on 06/14/19 with results to PCP. Hospital Course: Miracle is admitted to the floor for hyperkalemia, acute renal injury, and a UTI. she was given Kayexalate in the ED and responded well to this with her potassium coming back to normal. Unfortunately today her potassium did go back up to 5.3. She was again given 45 g of Kayexalate this morning. prior labs were reviewed which showed a potassium level of 5.3 at her last PCP visit. Discussed this with Dr. Phan and he suggests 15 g Kayexalate daily and discontinuing the patient's low-dose lisinopril. she was given IV fluids on admission with good response. Again in reviewing prior note on 05/03/19 patient' s BUN was 54and creatinine was creatinine 2.06. This is much improved today prior to discharge with a BUN of 34 and a creatinine of 1.5. GFR admission was 22 and prior to discharge was 34. Urine culture was obtained and didn't grow out Proteus. She was receiving IV Rocephin and will be switched over to by mouth Keflex. Dosing was reviewed with pharmacy as the patient does have significant renal failure. They suggest 250 mg every 12 hours. This will be prescribedfor 5 days. She otherwise has had no complaints. Therapies found her at prior level of functioning and did not pick her up. She has been ambulatory around the department with nursing. her magnesium this morning was low and was supplemented. She will be discharged today back to [facility]. recommending follow-up with primary care provider within 5-7 days of discharge. She was given orders for a CBC, BMP, and magnesium on 06/14/19 with results to the primary care provider. All other home medications were continued with the exception of lisinopril as mentioned above. She was given prescriptions for Kayexalate and Keflex as mentioned prior. - Patient Instructions Diet, Other: NDD2 diet - [place] thick liquids, Low potassium diet Activity: As Tolerated Driving: Do Not Drive Showering/Bathing: May Shower Notify Provider of: Fever, Increased Pain, Nausea and/or Vomiting Other/Special Instructions: Follow-up with primary care provider within 5-7 days of discharge, sooner if needed. Recommend repeat CBC, BMP, and magnesium on 06/14/19 with results to PCP - Dr. Lieberman. Take your antibiotic as precribed and until complete, even if you feel 100 percent better. Low potassium diet. Should symptoms return or worsen, contact primary care provider or return to the ED. - Discharge Plan *PRESCRIPTION DRUG MONITORING PROGRAM REVIEWED*: No *COPY OF PRESCRIPTION DRUG MONITORING REPORT IN PATIENT RYLEY: No Prescriptions/Med Rec: Cephalexin [Keflex] 250 mg PO Q12HR #10 capsule Sodium Polystyrene Sulfonate [Kayexalate] 15 gm PO DAILY #600 ml Home Medications: Home Meds Ascorbic Acid [Vitamin C] 250 mg PO BID 03/22/19 [History] Bisacodyl [Dulcolax] 5 mg PO DAILY PRN 03/22/19 [History] Carvedilol 3.125 mg PO BID 03/22/19 [History] Citalopram Hydrobromide [Celexa] 20 mg PO DAILY 03/22/19 [History] Ferrous Sulfate 325 mg PO BID 03/22/19 [History] Gabapentin [Neurontin] 100 mg PO TID 03/22/19 [History] Insulin Aspart [NovoLOG] 12 units SQ 03/22/19 [History] Insulin Aspart [NovoLOG] 16 units SQ QAM 03/22/19 [History] Insulin Detemir [Levemir] 16 units SQ QPM 03/22/19 [History] Insulin Detemir [Levemir] 22 units SQ QAM 03/22/19 [History] Netarsudil Mesylat/Latanoprost [Rocklatan 0.02%-0.005% Eye Drp] 1 drop EYERT BEDTIME 03/22/19 [History] atorvaSTATin [Lipitor] 40 mg PO BEDTIME 03/22/19 [History] Acetaminophen [Acetaminophen Extra Strength] 1,000 mg PO TID 06/09/19 [History] Aspirin [Halfprin] 81 mg PO DAILY 06/09/19 [History] Bisacodyl [Dulcolax] 10 mg RC DAILY PRN 06/09/19 [History] Brimonidine Tartrate/Timolol [Combigan 0.2%-0.5% Eye Drops] 1 drop EYERT BID 01/20 [History] Clopidogrel [Plavix] 75 mg PO DAILY 06/09/19 [History] Famotidine [Pepcid] 40 mg PO ACBREAKFAST 06/09/19 [History] Insulin Aspart [NovoLOG] 1 - 10 unit SQ TID 06/09/19 [History] Levothyroxine [Synthroid] 100 mcg PO ACBREAKFAST 06/09/19 [History] Ondansetron [Zofran ODT] 4 mg PO TID PRN 06/09/19 [History] Cephalexin [Keflex] 250 mg PO Q12HR #10 capsule 06/11/19 [Rx] Sodium Polystyrene Sulfonate [Kayexalate] 15 gm PO DAILY #600 ml 06/11/19 [Rx] Oxygen Therapy Mode: Room Air Patient Handouts: Hyperkalemia, [id number], Sepsis, Adult, Urinary Tract Infection, Adult, Potassium Content of Foods Forms: ED Department Discharge Referrals: Joel Lieberman MD [Primary Care Provider] - - Discharge Summary/Plan Comment DC Time >30 min.: Yes (45 mins ) - General Info Date of Service: 06/11/19 Admission Dx/Problem (Free Text: Admission Diagnosis/Problem Admission Diagnosis/Problem Hypokalemia Functional Status: Reports: Pain Controlled, Tolerating Diet, Ambulating, Urinating. Denies: New Symptoms - Review of Systems General: Reports: No Symptoms. Denies: Fever, Weakness, Fatigue, Malaise, Chills HEENT: Reports: No Symptoms. Denies: Headaches, Sore Throat Pulmonary: Reports: No Symptoms. Denies: Shortness of Breath, Pleuritic Chest Pain, Cough, Sputum, Hemoptysis, Wheezing Cardiovascular: Reports: No Symptoms. Denies: Chest Pain, Dyspnea on Exertion Gastrointestinal: Reports: No Symptoms. Denies: Abdominal Pain, Constipation, Diarrhea, Nausea, Vomiting Genitourinary: Reports: No Symptoms. Denies: Pain Musculoskeletal: Reports: No Symptoms Skin: Reports: No Symptoms. Denies: Cyanosis Neurological: Reports: Pre-Existing Deficit. Denies: Confusion Psychiatric: Reports: No Symptoms - Patient Data Vitals - Most Recent: Last Vital Signs Temp 98.1 F 06/11/19 11:13 Pulse 85 06/11/19 11:11 Resp 16 06/11/19 11:11 BP 148/77 H 06/11/19 11:11 Pulse Ox 94 L 06/11/19 11:11 Orthostatic Blood Pressure [ 121/102 Standing] Orthostatic Blood Pressure [ 112/54 Sitting] Orthostatic Blood Pressure [ 110/51 Supine] Weight - Most Recent: 168 lb 14.409 oz I&O - Last 24 hours: Intake & Output 06/10/19 06/11/19 06/11/19 22:59 06:59 14:59 Intake Total 2930 340 240 Balance 2930 340 240 Lab Results - Last 24 hrs: Laboratory Results - last 24 hr 06/10/19 06/10/19 06/10/19 Range/Units 12:04 15:05 20:46 WBC (3.98-10.04) K/mm3 RBC (3.98-5.22) M/mm3 Hgb (11.2-15.7) gm/dl Hct (34.1-44.9) % MCV (79.4-94.8) fl MCH (25.6-32.2) pg MCHC (32.2-35.5) g/dl RDW Std Deviation (36.4-46.3) fL Plt Count (182-369) K/mm3 MPV (9.4-12.3) fl Neut % (Auto) (34.0-71.1) % Lymph % (Auto) (19.3-51.7) % [place] % (Auto) (4.7-12.5) % Eos % (Auto) (0.7-5.8) Baso % (Auto) (0.1-1.2) % Neut # (Auto) (1.56-6.13) K/mm3 Lymph # (Auto) (1.18-3.74) K/mm3 [place] # (Auto) (0.24-0.36) K/mm3 Eos # (Auto) (0.04-0.36) K/mm3 Baso # (Auto) (0.01-0.08) K/mm3 Sodium (136-145) mEq/L Potassium (3.5-5.1) mEq/L Chloride (98-107) mEq/L Carbon Dioxide (21-32) mEq/L Anion Gap (5-15) BUN (7-18) mg/dL Creatinine (0.55-1.02) mg/dL Est Cr Clr Drug Dosing mL/min Estimated GFR (MDRD) (>60) mL/min BUN/Creatinine Ratio (14-18) Glucose (80-115) mg/dL POC Glucose 191 H 183 H 157 H (80-115) mg/dL Calcium (8.5-10.1) mg/dL Magnesium (1.8-2.4) mg/dl C-Reactive Protein (<1.0) mg/dL 06/11/19 06/11/19 06/11/19 Range/Units 06:04 06:05 06:05 WBC 7.65 (3.98-10.04) K/mm3 RBC 3.05 L (3.98-5.22) M/mm3 Hgb 8.9 L (11.2-15.7) gm/dl Hct 28.8 L (34.1-44.9) % MCV 94.4 (79.4-94.8) fl MCH 29.2 (25.6-32.2) pg MCHC 30.9 L (32.2-35.5) g/dl RDW Std Deviation 46.5 H (36.4-46.3) fL Plt Count 240 (182-369) K/mm3 MPV 10.3 (9.4-12.3) fl Neut % (Auto) 62.8 (34.0-71.1) % Lymph % (Auto) 20.7 (19.3-51.7) % [place] % (Auto) 9.5 (4.7-12.5) % Eos % (Auto) 6.4 H (0.7-5.8) Baso % (Auto) 0.5 (0.1-1.2) % Neut # (Auto) 4.80 (1.56-6.13) K/mm3 Lymph # (Auto) 1.58 (1.18-3.74) K/mm3 [place] # (Auto) 0.73 H (0.24-0.36) K/mm3 Eos # (Auto) 0.49 H (0.04-0.36) K/mm3 Baso # (Auto) 0.04 (0.01-0.08) K/mm3 Sodium 141 (136-145) mEq/L Potassium 5.3 H (3.5-5.1) mEq/L Chloride 111 H (98-107) mEq/L Carbon Dioxide 20 L (21-32) mEq/L Anion Gap 15.3 H (5-15) BUN 34 H (7-18) mg/dL Creatinine 1.5 H (0.55-1.02) mg/dL Est Cr Clr Drug Dosing 25.07 mL/min Estimated GFR (MDRD) 34 (>60) mL/min BUN/Creatinine Ratio 22.7 H (14-18) Glucose 129 H (80-115) mg/dL POC Glucose 132 H (80-115) mg/dL Calcium 8.9 (8.5-10.1) mg/dL Magnesium 1.7 L (1.8-2.4) mg/dl C-Reactive Protein 0.4 (<1.0) mg/dL DOT Results - Last 24 hrs: Microbiology 06/09/19 21:05 Urine Culture - Final Urine, Catheterized Proteus Mirabilis 06/09/19 22:30 Aerobic Blood Culture - Preliminary Blood - Venous - Lab Draw NO GROWTH AFTER 1 DAY Anaerobic Blood Culture - Final 06/09/19 22:15 Aerobic Blood Culture - Preliminary Blood - Venous NO GROWTH AFTER 1 DAY Anaerobic Blood Culture - Final Med Orders - Current: Current Medications Ascorbic Acid (Vitamin C) 250 mg PO BID [facility] Last Admin: 06/11/19 08:48 Dose: 250 mg Aspirin (Halfprin) 81 mg PO DAILY [facility] Last Admin: 06/11/19 08:47 Dose: 81 mg Bisacodyl (Dulcolax) 5 mg PO DAILY PRN PRN Reason: Constipation Bisacodyl (Dulcolax) 10 mg RECTAL DAILY PRN PRN Reason: Constipation Brimonidine Tartrate (Brimonidine Tartrate 0.2% Ophth Soln) 0 ml EYERT BID [facility] Last Admin: 06/11/19 09:02 Dose: 1 drop Carvedilol (Coreg) 3.125 mg PO BID [facility] Last Admin: 06/11/19 08:47 Dose: 3.125 mg Citalopram Hydrobromide (Celexa) 20 mg PO DAILY [facility] Last Admin: 06/11/19 08:48 Dose: 20 mg Clopidogrel Bisulfate (Plavix) 75 mg PO DAILY [facility] Last Admin: 06/11/19 08:47 Dose: 75 mg Famotidine (Pepcid) 40 mg PO ACBREAKFAST [facility] Last Admin: 06/11/19 06:43 Dose: 40 mg Ferrous Sulfate (Ferrous Sulfate) 324 mg PO BID [facility] Last Admin: 06/11/19 08:47 Dose: 324 mg Gabapentin (Neurontin) 100 mg PO TID [facility] Last Admin: 06/11/19 08:47 Dose: 100 mg Ceftriaxone Sodium 1 gm/ (Sodium Chloride) 100 mls @ 200 mls/hr IV Q24H [facility] Last Admin: 06/10/19 21:40 Dose: 200 mls/hr Insulin Glargine (Lantus) 22 unit SUBCUT QAM [facility] Last Admin: 06/11/19 08:58 Dose: 22 units Insulin Glargine (Lantus) 16 unit SUBCUT QPM [facility] Last Admin: 06/10/19 17:10 Dose: 16 units Insulin Human Lispro (Humalog) 0 unit SUBCUT QIDACANDBED [facility]; Protocol Last Admin: 06/11/19 06:35 Dose: Not Given Levothyroxine Sodium (Synthroid) 100 mcg PO ACBREAKFAST [facility] Last Admin: 06/11/19 06:43 Dose: 100 mcg Ondansetron HCl (Zofran Odt) 4 mg PO TID PRN PRN Reason: Nausea Netarsudil Mesylat/Latanoprost [ Rocklatan 0.02%-0. 005% Ey 0 each EYERT BEDTIME [facility] Last Admin: 06/10/19 20:50 Dose: Not Given Rosuvastatin Calcium (Crestor) 10 mg PO BEDTIME [facility] Last Admin: 06/10/19 20:46 Dose: 10 mg Sodium Chloride (Saline Flush) 10 ml FLUSH ASDIRECTED PRN PRN Reason: Keep Vein Open Last Admin: 06/09/19 21:01 Dose: 10 ml Sodium Polystyrene Sulfonate (Kayexalate) 15 gm PO DAILY [facility] Timolol Maleate (Timoptic 0.5% Ophth Soln) 0 ml EYEBOTH BID [facility] Last Admin: 06/11/19 09:04 Dose: 1 drop Discontinued Medications Albuterol (Proventil Neb Soln) 2.5 mg NEB ONETIME ONE Stop: 06/09/19 21:59 Last Admin: 06/09/19 22:12 Dose: 2.5 mg Calcium Gluconate (Calcium Gluconate) 1 gm IVPUSH ONETIME ONE Stop: 06/09/19 21:59 Last Admin: 06/09/19 22:23 Dose: 1 gm Dextrose/Water (Dextrose 50% In Water) 50 ml IVPUSH ONETIME ONE Stop: 06/09/19 22:00 Last Admin: 06/09/19 22:21 Dose: 50 ml Sodium Chloride (Normal Saline) 500 mls @ 1,000 mls/hr IV .BOLUS [facility] Last Admin: 06/09/19 21:01 Dose: 1,000 mls/hr Ceftriaxone Sodium 2 gm/ (Sodium Chloride) 100 mls @ 200 mls/hr IV ONETIME ONE Stop: 06/09/19 22:31 Last Admin: 06/09/19 22:33 Dose: 200 mls/hr Sodium Chloride (Normal Saline) 500 mls @ 1,000 mls/hr IV .BOLUS ONE Stop: 06/09/19 22:35 Last Admin: 06/10/19 01:19 Dose: Not Given Sodium Chloride (Normal Saline) 1,000 mls @ 150 mls/hr IV ASDIRECTED [facility] Last Admin: 06/10/19 01:07 Dose: 150 mls/hr Sodium Chloride (Normal Saline) 1,000 mls @ 100 mls/hr IV ASDIRECTED [facility] Last Admin: 06/10/19 08:05 Dose: 100 mls/hr Magnesium Sulfate 2 gm/ Premix 50 mls @ 25 mls/hr IV ONETIME ONE Stop: 06/11/19 09:12 Last Admin: 06/11/19 11:12 Dose: Not Given Insulin Human Regular (Humulin R) 10 unit SUBCUT ONETIME ONE Stop: 06/09/19 22:00 Last Admin: 06/09/19 22:20 Dose: 10 units Magnesium Oxide (Magnesium Oxide) 800 mg PO ONETIME ONE Stop: 06/11/19 09:01 Last Admin: 06/11/19 08:47 Dose: 800 mg Sodium Polystyrene Sulfonate (Kayexalate) 45 gm PO NOW ONE Stop: 06/09/19 22:01 Last Admin: 06/10/19 01:19 Dose: Not Given Sodium Polystyrene Sulfonate (Kayexalate) 45 gm PO NOW ONE Stop: 06/11/19 08:01 Last Admin: 06/11/19 08:49 Dose: 45 gm - Exam Quality Assessment: Reports: DVT Prophylaxis General: Reports: Alert, Oriented, Cooperative HEENT: Reports: Pupils Equal, Pupils Reactive, Mucous Membr. Moist/[place] Neck: Reports: Supple, Trachea Midline Lungs: Reports: Clear to Auscultation, Normal Respiratory Effort Cardiovascular: Reports: Regular Rate, Regular Rhythm GI/Abdominal Exam: Normal Bowel Sounds, Soft, Non-Tender, No Organomegaly, No Distention (Female) Exam: Deferred Rectal (Female) Exam: Deferred Back Exam: Reports: Normal Inspection, Full Range of Motion Extremities: Normal Inspection, Normal Range of Motion, Non-Tender, No Pedal Edema, Normal Capillary Refill Skin: Reports: Warm, Dry, Intact Neurological: Reports: No New Focal Deficit Psy/Mental Status: Reports: Alert, Normal Affect, Normal Mood
[2019-06-12] MEDS ORDERED: Sodium Polystyrene Sulfonate 15 GM/60 ML Susp 60 ML Bot PO SCH (09:00)
== END 2019-06-11 13:45 | DRG 683 ==
LOC: JD.ED 20:11 → JD.MS 23:02
PROVIDERS: ADMIT Family Medicine; ATTEND Family Medicine
DX: N17.9 Acute kidney failure, unspecified (principal); N39.0 Urinary tract infection, site not specified; F10.27 Alcohol dependence with alcohol-induced persisting dementia; H40.9 Unspecified glaucoma; E87.5 Hyperkalemia; D64.9 Anemia, unspecified; E83.42 Hypomagnesemia; E03.9 Hypothyroidism, unspecified; I25.10 Atherosclerotic heart disease of native coronary artery without angina pectoris; N18.9 Chronic kidney disease, unspecified; I12.9 Hypertensive chronic kidney disease with stage 1 through stage 4 chronic kidney disease, or unspecified chronic kidney disease; E11.22 Type 2 diabetes mellitus with diabetic chronic kidney disease; K59.09 Other constipation; F03.90 Unspecified dementia, unspecified severity, without behavioral disturbance, psychotic disturbance, mood disturbance, and anxiety; Z87.891 Personal history of nicotine dependence; Z79.02 Long term (current) use of antithrombotics/antiplatelets; F32.9 Major depressive disorder, single episode, unspecified; I25.2 Old myocardial infarction; Z86.73 Personal history of transient ischemic attack (TIA), and cerebral infarction without residual deficits; Z79.4 Long term (current) use of insulin; Z79.82 Long term (current) use of aspirin; Z79.890 Hormone replacement therapy; Z79.899 Other long term (current) drug therapy; Z85.118 Personal history of other malignant neoplasm of bronchus and lung
CPT/HCPCS: 36415; 80053; 81001; 83036; 83605; 83735; 84484; 85025; 87040 ×2; 87086; 87088; 87186; 93005; 94640; 96361; 96374; 96375; 99285; J0610; J0696; J1815; J7030; J7040; J7060; 80048; 82607; 82747; 82962; 83540; 84466; 85014; 86140; 87641; 93010; 97161-GP; 97165-GO; 97530-GO; 99284; A9270-GY